=== PATIENT | female | born 1985 | race African-American/Black ===

== ENCOUNTER 2018-01-04 08:43 | Emergency (ER) | payer MEDICAID, SELFPAY ==
[2018-01-04 08:44] VITALS: BP 154/69; PULSE 80; RESP 16; TEMP 36.4; O2SAT 99; BMI 43.0
--- NOTE | 2018-01-04 08:55 | CT_ITS ---
STUDY: CT ABDOMEN AND PELVIS WITHOUT CONTRAST REASON FOR EXAM: Female, 32 years old. SUDDEN ONSET ABD PAIN THIS AM -- GB,TUBAL, X3,UMBILICAL HERNIA. RADIATION DOSAGE (If Supplied By Facility): CTDIvol = ( 19.91 ) mGy, DLP = ( 949.93 ) mGycm TECHNIQUE: Transaxial images were obtained from the dome of the diaphragm to the symphysis pubis without oral contrast, and without intravenous contrast. Sagittal and coronal images were reconstructed. Individualized dose optimization techniques were used for this CT. COMPARISON: May 13, 2016 FINDINGS: The visualized lung bases are unremarkable. The visualized portions of the heart are within normal limits. Normal liver. There are surgical clips in the gallbladder fossa consistent with a prior cholecystectomy. Normal spleen. Normal pancreas. Normal bilateral adrenal glands. Normal right kidney. Normal left kidney. Normal visualized stomach. Normal small intestine. Normal colon. The appendix is visualized and appears normal. Normal abdominal aorta. Normal inferior vena cava. Normal retroperitoneum. Normal urinary bladder. Tubal ligation clips are noted. There is decreased fat containing ventral hernia. Normal osseous structures. CT/Abdomen/Pelvis without Cont IMPRESSION: No acute intra-abdominal or intrapelvic abnormality. Cholecystectomy. Tubal ligation. Electronically Signed: Mamie Bermudez MD at 10:27 EDT Tel , Service support ,
[2018-01-04] MEDS: 0.9% Normal Saline 1,000 ML 125 ML IV (09:13)
[2018-01-04 09:16] LABS: Absolute Lymphocyte Count 2.97 X10^3/ul (0.83-4.51); Absolute Neutrophil Count 3.7 X10^3/uL (2.0-7.7); Basophil# 0.01 X10^3/uL; Basophil% 0.1 % (0-1); Eosinophil# 0.16 X10^3/uL; Eosinophils% 2.2 % (0-5); Hematocrit 32.4 % (37-47); Hemoglobin 10.2 g/dl (12.0-15.0); Lymphocyte # 2.97 X10^3/ul (4.0); Lymphocyte % 41.1 % (19-41); Mean Corp Hgb Conc 31.5 g/gl (32-36); Mean Corpuscular Hgb 27.1 pg (27.0-32.0); Mean Corpuscular Volume 86.2 fL (81-99); Mean Platelet Vol. 10.4 fl (6.2-12.0); Monocyte# 0.42 X10^3/uL; Monocyte% 5.8 % (0-10); Neutrophil # 3.66 X10^3/uL (2.7-7.7); Neutrophil % 50.7 % (47-70); Platelet Count 322 K/mm3 (150-450); RBC Distribution Width CV 16.2 % (11.6-14.6); RBC Distribution Width SD 51.2 fl (35.1-43.9); Red Blood Count 3.76 M/mm3 (4.2-5.4); White Blood Count 7.2 K/mm3 (4.4-11.0)
[2018-01-04 09:26] LABS: POSITIVE COUNT NO; POSITIVE DIFFERENTIAL NO; POSITIVE MORPHOLOGY NO
[2018-01-04 09:33] LABS: ALB/GLOB Ratio 0.8 RATIO (0.9-2.4); AST(SGOT) 12 U/L (15-37); Alanine Aminotransfer ALT/SGPT 18 U/L (13-56); Albumin, Serum 3.2 g/dL (3.2-5.0); Alkaline Phosphatase 74 U/L (45-117); Anion Gap 9 (5-15); BUN 10 mg/dL (7-18); BUN/Creat Ratio 13.6 RATIO (10-20); Calcium,Total 8.6 mg/dL (8.5-10.1); Chloride 108 mmol/L (98-107); Creatinine, Serum 0.73 mg/dL (0.55-1.02); EST Glomerular Filtration Rate 99 mL/min (>60); Est Glom Filt Rate - Afr Amer 119 mL/min (>60); Estimated Creatinine Clearance 93.22 ml/min; Globulin 4.1 g/dL (2.2-4.2); Glucose 72 mg/dL (74-106); Lipase 123 U/L (73-393); Potassium 3.7 mmol/L (3.5-5.1); Pregnancy, Serum, hCG Quali. NEGATIVE Negative (0-9 Nonpreg); Protein, Total 7.3 g/dL (6.4-8.2); Sodium Level 141 mmol/L (136-145); Total Bilirubin < 0.10 mg/dL (0.20-1.00)
--- NOTE | 2018-01-04 10:52 | ED.DCSUM_ITS ---
- ER Visit Summary Date of Service: 01/04/18 Chief Complaint: [Abdominal pain] History of Present Illness: The patient is a 32 F [presents with abdominal pain that started around 6 AM. Patient rates her pain an 8 out of 10. Patient describes it as upper abdomen. Patient's had nausea but no vomiting. Patient denies any blood in her stool or black tarry stools. Her last menstrual period was December 26. Patient denies any fever. Patient denies urinary symptoms of urgency, frequency, or dysuria. Patient has had prior hernia repair and she thinks her pain may be in the same area as her prior hernia. Patient denies any lifting or straining out of the ordinary.] Physical Examination: [HEENT-PERRLA, EOMI. Cranial nerves II through XII grossly intact. TMs clear. Mucous membranes moist. No adenopathy. Cardiovascular-regular rate and rhythm without murmur or ectopy Lungs-clear to auscultation, chest wall stable without crepitus or subcu emphysema Abdomen-normoactive bowel sounds, soft. Patient has mild diffuse tenderness in the epigastric area as well as the right lower quadrant. There is no rebound, rigidity, or perineal signs. Extremities-intact ?4, normal range of motion, normal pulses, atraumatic] Test Results: [CBC with differential was normal. Chemistries were unremarkable. HCG was negative. LFTs were normal and lipase was normal. CT abdomen pelvis without contrast showed nothing acute.] Emergency Department Course and Treatment: [Patient did not want anything for pain on presentation and on repeat examination after workup abdominal pain is significantly improved and just has minimal discomfort at this time. Her abdomen is benign.] Treatment Plan: [Follow-up with primary care physician within the next 3-4 days. ] Disposition: [Discharged to home in stable condition.] Impression: [Abdominal pain-etiology uncertain] This note was generated with [employer] dictation software. It may contain incorrect words, spelling, and punctuation that were not noted in review of the chart prior to signing ED Disposition - Plan for ED Patient: Chief Complaint: Abd Pain Referrals: Care Physician,No Primary [Primary Care Provider] -
--- NOTE | 2018-01-04 10:53 | ED.DEP ---
ED Disposition - Plan for ED Patient: Chief Complaint: Abd Pain Instructions: ED Abdominal Pain Unkn Cause Referrals: Care Physician,No Primary [Primary Care Provider] - Ronn Wyman MD [STAFF PHYSICIAN] - 3-5 Days
[2018-01-04 11:04] VITALS: BP 129/77; PULSE 68; RESP 15; O2SAT 98
== END 2018-01-04 11:06 | disposition home or self-care (01) ==
PROVIDERS: Emergency Provider Emergency Medicine
DX: R10.13 Epigastric pain (principal); R10.31 Right lower quadrant pain; Z90.49 Acquired absence of other specified parts of digestive tract; Z72.0 Tobacco use
CPT/HCPCS: 74176; 80053; 83690; 84703; 85025; 96360; 96361; 99283; J7030; A4216

== ENCOUNTER 2018-04-28 09:41 | Emergency (ER) | payer MEDICAID, SELFPAY ==
[2018-04-28 09:42] VITALS: BP 121/105; PULSE 85; RESP 16; TEMP 36.9; O2SAT 100; BMI 40.7
--- NOTE | 2018-04-28 09:59 | ED.VISSUMM ---
- ER Visit Summary Date of Service: 04/28/18 Chief Complaint: Cough and short of breath History of Present Illness: The patient is a 33 F 3 of asthma. Currently is not been using her inhaler. She is a smoker. Patient states for the last 24-48 hours she has had URI symptoms. With chills and a productive cough of yellowish sputum. She denies any fever. No hemoptysis. No history of DVT or PE risk factors. Physical Examination: Well-appearing young female. Vital signs are stable afebrile. Pulse ox 100% on room air no signs of hypoxia. H EENT exam unremarkable. TMs normal. Posterior pharynx normal. Moist mucous membranes. No erythema or exudate. No drooling or stridor. Neck nontender no lymphadenopathy. Lungs prolonged expiratory phase. Few scattered wheezes. No rales or rhonchi. Equal and symmetrical. Heart regular rhythm no murmur. Abdomen soft nontender. Moving all 4 extremities. Calves nontender no edema no cords. Neurologically she is awake and alert with no focal motor deficits. Skin and back exams are unremarkable. Test Results: Two-view chest x-ray shows normal by myself. Emergency Department Course and Treatment: Patient treated with a DuoNeb aerosol and p.o. prednisone. P exam at 1058 patient feels better. She is much better air movement after the DuoNeb aerosol and the oral prednisone. She is no longer wheezing. She feels comfortable being discharged to home. She and I discussed her chest x-ray results. She was also instructed to stop smoking. Treatment Plan: Prednisone 40 mg a day for 1 week. Proventil inhaler as needed. Follow-up with her primary care physician or return if worse. Disposition: Discharge Impression: Acute viral bronchitis Acute exacerbation of asthma This note was generated with [employer] dictation software. It may contain incorrect words, spelling, and punctuation that were not noted in review of the chart prior to signing ED Disposition - Plan for ED Patient: Disposition: Home or Assisted Living Chief Complaint: Asthma Instructions: ED Bronchitis Asthmatic Prescriptions: Albuterol Sulfate [Proventil Hfa] 6.7 gm IH Q4H PRN PRN #1 [email or web address] PRN Reason: Wheezing Prednisone [Deltasone] 40 mg PO DAILY #7 tab Referrals: Ronn Wyman MD [STAFF PHYSICIAN] - 3-5 Days if not improving Additional Instructions: Absolutely stop smoking! Prednisone daily to decrease inflammation in the lungs and help with your breathing. Inhaler 2-4 pulse as needed every 4 hours. No surgical process of Follow-up with your doctor needed.
--- NOTE | 2018-04-28 10:02 | ED.DEP ---
ED Disposition - Plan for ED Patient: Disposition: Home or Assisted Living Chief Complaint: Asthma Instructions: ED Bronchitis Asthmatic Prescriptions: Albuterol Sulfate [Proventil Hfa] 6.7 gm IH Q4H PRN PRN #1 [email or web address] PRN Reason: Wheezing Prednisone [Deltasone] 40 mg PO DAILY #7 tab Referrals: Ronn Wyman MD [STAFF PHYSICIAN] - 3-5 Days if not improving Additional Instructions: Absolutely stop smoking! Prednisone daily to decrease inflammation in the lungs and help with your breathing. Inhaler 2-4 pulse as needed every 4 hours. No surgical process of Follow-up with your doctor needed.
[2018-04-28] MEDS: Ipratropium/Albuterol Sulfate 3 ML AMPUL.NEB INHALATION (10:06)
[2018-04-28 10:07] VITALS: PULSE 86; RESP 16
[2018-04-28] MEDS: predniSONE 20 MG Tablet 60 MG PO (10:26)
== END 2018-04-28 11:28 | disposition home or self-care (01) ==
LOC: ED 10:44
PROVIDERS: Emergency Provider Emergency Medicine
DX: J20.8 Acute bronchitis due to other specified organisms (principal); J45.901 Unspecified asthma with (acute) exacerbation; F17.200 Nicotine dependence, unspecified, uncomplicated
CPT/HCPCS: 71046; 94640; 99283

== ENCOUNTER 2018-08-21 17:43 | Emergency (ER) | payer MEDICAID, SELFPAY ==
[2018-08-21 17:44] VITALS: BP 118/75; PULSE 77; RESP 16; TEMP 36.8; O2SAT 100; BMI 37.9
[2018-08-21] MEDS: 0.9% Normal Saline 1,000 ML 1000 ML IV (18:16)
[2018-08-21] MEDS: Ondansetron 4 MG/2 ML Vial IV (18:16)
[2018-08-21 18:18] LABS: Absolute Lymphocyte Count 1.82 X10^3/ul (0.83-4.51); Absolute Neutrophil Count 4.5 X10^3/uL (2.0-7.7); Eosinophil# 0.14 X10^3/uL; Eosinophils% 2.1 % (0-5); Hematocrit 33.6 % (37-47); Hemoglobin 10.7 g/dl (12.0-15.0); Lymphocyte # 1.82 X10^3/ul (4.0); Lymphocyte % 26.7 % (19-41); Mean Corp Hgb Conc 31.8 g/gl (32-36); Mean Corpuscular Volume 84.8 fL (81-99); Monocyte% 5.9 % (0-10); Neutrophil # 4.46 X10^3/uL (2.7-7.7); Neutrophil % 65.3 % (47-70); Platelet Count 338 K/mm3 (150-450); RBC Distribution Width CV 16.1 % (11.6-14.6); RBC Distribution Width SD 50.1 fl (35.1-43.9); Red Blood Count 3.96 M/mm3 (4.2-5.4); White Blood Count 6.8 K/mm3 (4.4-11.0)
[2018-08-21 18:20] LABS: POSITIVE COUNT NO; POSITIVE DIFFERENTIAL NO; POSITIVE MORPHOLOGY NO
--- NOTE | 2018-08-21 18:29 | ED.VISSUMM ---
- ER Visit Summary Date of Service: 08/21/18 Chief Complaint: Diarrhea History of Present Illness: The patient is a 33 F with diarrhea and nausea for the past 2 days. Today she is noted some body aches as well. She has not noted fever. She has not had dysuria. Patient denies any past medical history. It is noted on a previous visit that she had elevated liver function test. Patient states nobody is ever really followed up on this and she has had no further workup for it. Physical Examination: Vital signs are unremarkable. Patient sitting upright in bed no acute distress. Head neck examination is unremarkable. Heart is regular rate and rhythm. Lung sounds are clear. Abdomen is soft with mild diffuse tenderness. No guarding or rebound. Hypoactive bowel sounds are noted throughout. Extremity examination reveals no focal tenderness. Strong distal pulses are noted. Test Results: CBC was normal white count with hemoglobin 10.7. Chemistry studies are normal. LFTs and lipase are normal. Emergency Department Course and Treatment: Patient was given IV fluids and Zofran. On repeat evaluation she does feel significantly improved. She has not had any further diarrhea here. She will be given prescription for Zofran. Treatment Plan: [] Disposition: Discharge Impression: 1. Nausea, improved 2. Reported diarrhea This note was generated with [employer] dictation software. It may contain incorrect words, spelling, and punctuation that were not noted in review of the chart prior to signing ED Disposition - Plan for ED Patient: Chief Complaint: Diarrhea Referrals: Care Physician,No Primary [Primary Care Provider] -
[2018-08-21 18:36] LABS: AST(SGOT) 10 U/L (15-37); Alanine Aminotransfer ALT/SGPT 17 U/L (13-56); Albumin, Serum 3.3 g/dL (3.2-5.0); Alkaline Phosphatase 74 U/L (45-117); Anion Gap 9 (5-15); BUN 11 mg/dL (7-18); BUN/Creat Ratio 15.4 RATIO (10-20); Bilirubin, Direct 0.08 mg/dL (0.00-0.30); Calcium,Total 8.4 mg/dL (8.5-10.1); Chloride 109 mmol/L (98-107); Creatinine, Serum 0.71 mg/dL (0.55-1.02); EST Glomerular Filtration Rate 101 mL/min (>60); Est Glom Filt Rate - Afr Amer 123 mL/min (>60); Estimated Creatinine Clearance 94.97 ml/min; Globulin 4.1 g/dL (2.2-4.2); Glucose 80 mg/dL (74-106); Lipase 130 U/L (73-393); Potassium 3.7 mmol/L (3.5-5.1); Protein, Total 7.4 g/dL (6.4-8.2); Sodium Level 142 mmol/L (136-145)
[2018-08-21 18:41] VITALS: PULSE 76; RESP 18; O2SAT 100
--- NOTE | 2018-08-21 19:11 | ED.DEP ---
ED Disposition - Plan for ED Patient: Disposition: Home or Assisted Living Chief Complaint: Diarrhea Instructions: ED Gastroenteritis Viral Prescriptions: Ondansetron [Zofran Odt] 4 mg PO Q8H PRN PRN #10 tablet PRN Reason: Nausea Referrals: Kasandra Willis MD [STAFF PHYSICIAN] - As Needed
[2018-08-21 19:14] VITALS: BP 123/74; PULSE 75; RESP 16; O2SAT 100
--- OUTSIDE RECORDS SUMMARY | 2018-11-23 09:54 | XMS RPT_ITS ---
:1985 Author Organization [facility] Care Team Providers Name Role Phone Primay Care Physicia, No Primary Care Unavailable Briana Calvert Attending Unavailable Primay Care Physicia, No Primary Care Unavailable Julissa Wilkes Attending Unavailable Primay Care Physicia, No Primary Care Unavailable Doe Mclain Attending Unavailable PROBLEMS PROBLEMS DATE TYPE CONDITION / CODE ATTENDING STATUS SOURCE 09/01/2018 Unknown R19.7 - Diarrhea, Briana Calvert Active [place] unspecified / Community R19.7(ICD-10) Hospital Repository PROCEDURES PROCEDURES No Procedure Records FoundRESULTS RESULTS EMERGENCY DEPARTMENT Observed: 08/22/2018 Status: F Source: [place] 12:31 AM [facility] REPOSITORY [facility] Medical Records Department [address] [place] [address] Emergency Department Summary 08/21/18 1829 MR#: [id number] Acct: [id number] Name: BEVERLEY LUKE Rep #: [id number] : 1985 33 From: Briana Calvert MD PCP: Care Physician, No Primary Status: [facility] ER - ER Visit Summary Date of Service: 08/21/18 Chief Complaint: Diarrhea History of Present Illness: The patient is a 33 F with diarrhea and nausea for the past 2 days. Today she is noted some body aches as well. She has not noted fever. She has not had dysuria. Patient denies any past medical history. It is noted on a previous visit that she had elevated liver function test. Patient states nobody is ever really followed up on this and she has had no further workup for it. Physical Examination: Vital signs are unremarkable. Patient sitting upright in bed no acute distress. Head neck examination is unremarkable. Heart is regular rate and rhythm. Lung sounds are clear. Abdomen is soft with mild diffuse tenderness. No guarding or rebound. Hypoactive bowel sounds are noted throughout. Extremity examination reveals no focal tenderness. Strong distal pulses are noted. Test Results: CBC was normal white count with hemoglobin 10.7. Chemistry studies are normal. LFTs and lipase are normal. Emergency Department Course and Treatment: Patient was given IV fluids and Zofran. On repeat evaluation she does feel significantly improved. She has not had any further diarrhea here. She will be given prescription for Zofran. Treatment Plan: [] Disposition: Discharge Impression: 1. Nausea, improved 2. Reported diarrhea This note was generated with [employer] dictation software. It may contain incorrect words, spelling, and punctuation that were not noted in review of the chart prior to signing ED Disposition - Plan for ED Patient: Chief Complaint: Diarrhea Referrals: Care Physician,No Primary [Primary Care Provider] - What to do if you have Problems For any increased pain, shortness of breath, bleeding, nausea or vomiting, chest pain, or any unexpected problems, contact your Primary Care Provider. Call [facility] ([phone]) or report to the closest Emergency Room. Call 911 if necessary. 08/22/18 0031 <Electronically signed by Briana Calvert MD> Date Briana Calvert MD Cosigner Signature (If Indicated): Date CC: No Primary Care Physician DISCHARGE INSTRUCTION Observed: 08/21/2018 Status: F Source: [place] 7:13 PM [facility] REPOSITORY [facility] Medical Records Department [address] [place] [address] Discharge Instruction 08/21/181910 MR#: [id number] Acct: [id number] Name: BEVERLEY LUKE Rep #: [id number] : 1985 33 From: Briana Calvert MD PCP: Care Physician, No Primary Status: REG ER ED Disposition - Plan for ED Patient: Disposition: Home or Assisted Living Chief Complaint: Diarrhea Instructions: ED Gastroenteritis Viral Prescriptions: Ondansetron [Zofran Odt] 4 mg PO Q8H PRN PRN #10 tablet PRN Reason: Nausea Referrals: Kasandra Willis MD [STAFF PHYSICIAN] - As Needed What to do if you have Problems For any increased pain, shortness of breath, bleeding, nausea or vomiting, chest pain, or any unexpected problems, contact your Primary Care Provider. Call [facility] ([phone]) or report to the closest Emergency Room. Call 911 if necessary. 08/21/181912 <Electronically signed by Briana Calvert MD> Date Briana Calvert MD Cosigner Signature (If Indicated): Date CC: No Primary Care Physician CBC W/DIFF, AUTOMATED Collected: 08/21/2018 Status: F Source: [place] 6:05 PM [facility] REPOSITORY TYPE CODE TESTS RESULT OUT OF RANGE REFERENCE UNITS LAB L100.1000 4.4-11.0 K/mm3 Normal WBC 6.8 LAB L100.1200 4.2-5.4 M/mm3 Low RBC 3.96 LAB L100.1300 12.0-15.0 g/dl Low HGB 10.7 LAB L100.1400 37-47 % Low HCT 33.6 LAB L100.1500 81-99 fL Normal MCV 84.8 LAB L100.1600 27.0-32.0 pg Normal MCH 27.0 LAB L100.1700 32-36 g/gl Low MCHC 31.8 LAB L100.1810 11.6-14.6 % High RDW CV 16.1 LAB L100.1820 35.1-43.9 fl High RDW SD 50.1 LAB L100.1900 150-450 K/mm3 Normal PLT 338 LAB L100.2000 6.2-12.0 fl Normal MPV 10.0 LAB L100.2100 47-70 % Normal NEUT% 65.3 LAB L100.2200 19-41 % Normal LY% 26.7 LAB L100.2300 0-10 % Normal MONO% 5.9 LAB L100.2400 0-5 % Normal EO% 2.1 LAB L100.2500 0-1 % Normal BASO% 0.0 LAB L100.2550 0.0-0.9 % Normal IM GRAN % 0.000 Result Comment: IG% - Immature Granulocytes (promyelocytes, myelocytes and metamyelocytes) > 1% indicates that a LEFT SHIFT is Present. LAB L100.2620 2.0-7.7 X10 3/uL Normal Absolute Neut 4.5 LAB L100.2720 0.83-4.51 X10 3/ul Normal Absolute Lymph 1.82 Performed By: #### L100.0100 #### [facility] [address] [place], [address] BASIC METABOLIC Collected: 08/21/2018 Status: F Source: [place] PROFILE ([facility]) 6:05 PM [facility] REPOSITORY TYPE CODE TESTS RESULT OUT OF RANGE REFERENCE UNITS LAB L501.0100 74-106 mg/dL Normal GLU 80 Result Comment: Please note revised GLUCOSE reference range effective 2017. LAB L501.1000 7-18 mg/dL Normal BUN 11 LAB L501.1100 0.55-1.02 mg/dL Normal CREAT,SERUM 0.71 Result Comment: The validity of the calculated GFR AND GFRAA in patients over 70 years has not been determined. Clinical correlation is essential. LAB L501.1110 >60 mL/min Normal EST GFR 101 Result Comment: Non- GFR Calc LAB L501.1115 >60 mL/min Normal EST GFR - AA 123 Result Comment: GFR Calc LAB L501.1255 ml/min Normal Estimated CRCL 94.97 LAB L501.1300 10-20 RATIO Normal BUN/CRE 15.4 LAB L501.2200 8.5-10 mg/dL Low .1 CA 8.4 LAB L501.5300 136-14 mmol/L Normal 5 NA 142 LAB L501.5600 3.5-5. mmol/L Normal 1 K 3.7 LAB L501.5900 98-107 mmol/L High CL 109 LAB L501.6100 21.0-3 mmol/L Normal 2.0 CO2 24.0 LAB L501.6200 5-15 Normal GAP 9 Performed By: #### L500.2500, L500.3400, L501.2450 #### [facility] [address] [place], [place], [id number] LIVER PROFILE Collected: 08/21/2018 Status: F Source: [place] 6:05 PM [facility] REPOSITORY TYPE CODE TESTS RESULT OUT OF RANGE REFERENCE UNITS LAB L501.1500 6.4-8.2 g/dL Normal T PROT 7.4 LAB L501.1800 3.2-5.0 g/dL Normal ALB 3.3 LAB L501.1950 2.2-4.2 g/dL Normal GLOB 4.1 LAB L501.4100 15-37 U/L Low AST 10 LAB L501.4305 45-117 U/L Normal ALK P 74 LAB L501.4405 13-56 U/L Normal ALT 17 LAB L501.4600 0.20-1.00 mg/dL Normal T BILI 0.30 LAB L501.4700 0.00-0.30 mg/dL Normal D BILI 0.08 Performed By: #### L500.2500, L500.3400, L501.2450 #### [facility] [address] [place], [place], [id number] LIPASE Collected: 08/21/2018 Status: F Source: [place] 6:05 PM [facility] REPOSITORY TYPE CODE TESTS RESULT OUT OF RANGE REFERENCE UNITS LAB L501.2450 73-393 U/L Normal LIPASE 130 Performed By: #### L500.2500, L500.3400, L501.2450 #### [facility] [address] [place], [address] EMERGENCY DEPARTMENT Observed: 04/28/2018 Status: F Source: [place] SUMMARY 3:33 PM [facility] REPOSITORY [facility] Medical Records Department [address] [place] [address] Emergency Department Summary 04/28/18 0959 MR#: [id number] Acct: [id number] Name: BEVERLEY LUKE Rep #: [id number] : 1985 33 From: Doe Mclain MD PCP: Care Physician, No Primary Status: [facility] ER - ER Visit Summary Date of Service: 04/28/18 Chief Complaint: Cough and short of breath History of Present Illness: The patient is a 33 F 3 of asthma. Currently is not been using her inhaler. She is a smoker. Patient states for the last 24- 48 hours she has had URI symptoms. With chills and a productive cough of yellowish sputum. She denies any fever. No hemoptysis. No history of DVT or PE risk factors. Physical Examination: Well-appearing young female. Vital signs are stable afebrile. Pulse ox 100% on room air no signs of hypoxia. H EENT exam unremarkable. TMs normal. Posterior pharynx normal. Moist mucous membranes. No erythema or exudate. No drooling or stridor. Neck nontender no lymphadenopathy. Lungs prolonged expiratory phase. Few scattered wheezes. No rales or rhonchi. Equal and symmetrical. Heart regular rhythm no murmur. Abdomen soft nontender. Moving all 4 extremities. Calves nontender no edema no cords. Neurologically she is awake and alert with no focal motor deficits. Skin and back exams are unremarkable. Test Results: Two-view chest x-ray shows normal by myself. Emergency Department Course and Treatment: Patient treated with a DuoNeb aerosol and p.o. prednisone. P exam at 1058 patient feels better. She is much better air movement after the DuoNeb aerosol and the oral prednisone. She is no longer wheezing. She feels comfortable being discharged to home. She and I discussed her chest x-ray results. She was also instructed to stop smoking. Treatment Plan: Prednisone 40 mg a day for 1 week. Proventil inhaler as needed. Follow-up with her primary care physician or return if worse. Disposition: Discharge Impression: Acute viral bronchitis Acute exacerbation of asthma This note was generated with [employer] dictation software. It may contain incorrect words, spelling, and punctuation that were not noted in review of the chart prior to signing ED Disposition - Plan for ED Patient: Disposition: Home or Assisted Living Chief Complaint: Asthma Instructions: ED Bronchitis Asthmatic Prescriptions: Albuterol Sulfate [Proventil Hfa] 6.7 gm IH Q4H PRN PRN #1 [email or web address] PRN Reason: Wheezing Prednisone [Deltasone] 40 mg PO DAILY #7 tab Referrals: Ronn Wyman MD [STAFF PHYSICIAN] - 3-5 Days if not improving Additional Instructions: Absolutely stop smoking! Prednisone daily to decrease inflammation in the lungs and help with your breathing. Inhaler 2-4 pulse as needed every 4 hours. No surgical process of Follow-up with your doctor needed. What to do if you have Problems For any increased pain, shortness of breath, bleeding, nausea or vomiting, chest pain, or any unexpected problems, contact your Primary Care Provider. Call [facility] ([phone]) or report to the closest Emergency Room. Call 911 if necessary. 04/28/18 1533 <Electronically signed by Doe Mclain MD> Date Doe Mclain MD Cosigner Signature (If Indicated): Date CC: No Primary Care Physician DISCHARGE INSTRUCTION Observed: 04/28/2018 Status: F Source: [place] 3:33 PM [facility] REPOSITORY [facility] Medical Records Department [address] [place] [address] Discharge Instruction 04/28/18 1002 MR#: [id number] Acct: [id number] Name: BEVERLEY LUKE Rep #: [id number] : 1985 33 From: Doe Mclain MD PCP: Care Physician, No Primary Status: [facility] ER ED Disposition - Plan for ED Patient: Disposition: Home or Assisted Living Chief Complaint: Asthma Instructions: ED Bronchitis Asthmatic Prescriptions: Albuterol Sulfate [Proventil Hfa] 6.7 gm IH Q4H PRN PRN #1 [email or web address] PRN Reason: Wheezing Prednisone [Deltasone] 40 mg PO DAILY #7 tab Referrals: Ronn Wyman MD [STAFF PHYSICIAN] - 3-5 Days if not improving Additional Instructions: Absolutely stop smoking! Prednisone daily to decrease inflammation in the lungs and help with your breathing. Inhaler 2-4 pulse as needed every 4 hours. No surgical process of Follow-up with your doctor needed. What to do if you have Problems For any increased pain, shortness of breath, bleeding, nausea or vomiting, chest pain, or any unexpected problems, contact your Primary Care Provider. Call [facility] ([phone]) or report to the closest Emergency Room. Call 911 if necessary. 04/28/18 1533 <Electronically signed by Doe Mclain MD> Date Doe Mclain MD Cosigner Signature (If Indicated): Date CC: No Primary Care Physician CHEST PA AND LATERAL Observed: 04/28/2018 Status: F Source: [place] 9:59 AM [facility] REPOSITORY [facility] Imaging Services [facility] [place] [address] [place] [address] Chest PA and Lateral MR#: [id number] Acct: [id number] Name: BEVERLEY LUKE Rep #: [id number] : 1985 F 33 From: Martin Song MD PCP: Care Physician, No Primary Status: REG ER Study: Chest PA and Lateral Date of Exam: 04/28/18 Exam# [id number] Ordering Dr: Doe Mclain MD STUDY: X-RAY CHEST REASON FOR EXAM: Female, 33 years old. Cough. History of asthma. TECHNIQUE: Single AP portable view of the chest. COMPARISON: None. FINDINGS: The lungs are clear and expanded. There is no demonstrated pleural abnormality. Normal size heart. Normal mediastinum and juliana. Normal visualized pulmonary arteries. Normal visualized aortic arch and descending thoracic aorta. Normal visualized thoracic spine. Normal visualized ribs, clavicles, and shoulders. There is no demonstrated abnormality of the visualized soft tissue structures of the upper abdomen. RAD/Chest PA and Lateral IMPRESSION: Normal x-ray examination of the chest. Electronically Signed: Matrin Song MD at 11:03 EDT Tel [phone], Service support , CC: No Primary Care Physician; Doe Mclain MD Retail Store Clerk: Signed DISCHARGE INSTRUCTION Observed: 01/04/2018 Status: F Source: [place] 10:53 AM [facility] Medical Records Department [address] [place] [address] Discharge Instruction 01/04/18 1053 MR#: [id number] Acct: [id number] Name: BEVERLEY LUKE Rep #: [id number] : 1985 32 From: Julissa Wilkes DO PCP: Care Physician, No Primary Status: REG ER ED Disposition - Plan for ED Patient: Chief Complaint: Abd Pain Instructions: ED Abdominal Pain Unkn Cause Referrals: Care Physician,No Primary [Primary Care Provider] - Ronn Wyman MD [STAFF PHYSICIAN] - 3-5 Days What to do if you have Problems For any increased pain, shortness of breath, bleeding, nausea or vomiting, chest pain, or any unexpected problems, contact your Primary Care Provider. Call [facility] ([phone]) or report to the closest Emergency Room. Call 911 if necessary. 01/04/18 1053 <Electronically signed by Julissa Wilkes DO> Date Julissa Wilkes DO Cosigner Signature (If Indicated): Date CC: No Primary Care Physician EMERGENCY DEPARTMENT Observed: 01/04/2018 Status: F Source: [place] SUMMARY 10:52 AM [facility] REPOSITORY [facility] Medical Records Department [address] [facility] [place] [address] Emergency Department Summary 01/04/18 1050 MR#: [id number] Acct: [id number] Name: EBVERLEY LUKE Delores Rep #: [id number] : 1985 32 From: Julissa Wilkes DO PCP: Care Physician, No Primary Status: REG ER - ER Visit Summary Date of Service: 01/04/18 Chief Complaint: [Abdominal pain] History of Present Illness: The patient is a 32 F [presents with abdominal pain that started around 6 AM. Patient rates her pain an 8 out of 10. Patient describes it as upper abdomen. Patient's had nausea but no vomiting. Patient denies any blood in her stool or black tarry stools. Her last menstrual period was December 26. Patient denies any fever. Patient denies urinary symptoms of urgency, frequency, or dysuria. Patient has had prior hernia repair and she thinks her pain may be in the same area as her prior hernia. Patient denies any lifting or straining out of the ordinary.] Physical Examination: [HEENT-PERRLA, EOMI. Cranial nerves II through XII grossly intact. TMs clear. Mucous membranes moist. No adenopathy. Cardiovascular-regular rate and rhythm without murmur or ectopy Lungs-clear to auscultation, chest wall stable without crepitus or subcu emphysema Abdomen-normoactive bowel sounds, soft. Patient has mild diffuse tenderness in the epigastric area as well as the right lower quadrant. There is no rebound, rigidity, or perineal signs. Extremities-intact 4, normal range of motion, normal pulses, atraumatic] Test Results: [CBC with differential was normal. Chemistries were unremarkable. HCG was negative. LFTs were normal and lipase was normal. CT abdomen pelvis without contrast showed nothing acute.] Emergency Department Course and Treatment: [Patient did not want anything for pain on presentation and on repeat examination after workup abdominal pain is significantly improved and just has minimal discomfort at this time. Her abdomen is benign.] Treatment Plan: [Follow-up with primary care physician within the next 3-4 days.] Disposition: [Discharged to home in stable condition.] Impression: [Abdominal pain-etiology uncertain] This note was generated with [employer] dictation software. It may contain incorrect words, spelling, and punctuation that were not noted in review of the chart prior to signing ED Disposition - Plan for ED Patient: Chief Complaint: Abd Pain Referrals: Care Physician,No Primary [Primary Care Provider] - What to do if you have Problems For any increased pain, shortness of breath, bleeding, nausea or vomiting, chest pain, or any unexpected problems, contact your Primary Care Provider. Call [facility] ([phone]) or report to the closest Emergency Room. Call 911 if necessary. 01/04/18 1052 <Electronically signed by Julissa Wilkes DO> Date Julissa Wilkes DO Cosigner Signature (If Indicated): Date CC: No Primary Care Physician CBC W/DIFF, AUTOMATED Collected: 01/04/2018 Status: F Source: [place] 9:02 AM [facility] REPOSITORY TYPE CODE TESTS RESULT OUT OF RANGE REFERENCE UNITS LAB L100.1000 4.4-11.0 K/mm3 Normal WBC 7.2 LAB L100.1200 4.2-5.4 M/mm3 Low RBC 3.76 LAB L100.1300 12.0-15.0 g/dl Low HGB 10.2 LAB L100.1400 37-47 % Low HCT 32.4 LAB L100.1500 81-99 fL Normal MCV 86.2 LAB L100.1600 27.0-32.0 pg Normal MCH 27.1 LAB L100.1700 32-36 g/gl Low MCHC 31.5 LAB L100.1810 11.6-14.6 % High RDW CV 16.2 LAB L100.1820 35.1-43.9 fl High RDW SD 51.2 LAB L100.1900 150-450 K/mm3 Normal PLT 322 LAB L100.2000 6.2-12.0 fl Normal MPV 10.4 LAB L100.2100 47-70 % Normal NEUT% 50.7 LAB L100.2200 19-41 % High LY% 41.1 LAB L100.2300 0-10 % Normal MONO% 5.8 LAB L100.2400 0-5 % Normal EO% 2.2 LAB L100.2500 0-1 % Normal BASO% 0.1 LAB L100.2550 0.0-0.9 % Normal IM GRAN % 0.100 Result Comment: IG% - Immature Granulocytes (promyelocytes, myelocytes and metamyelocytes) > 1% indicates that a LEFT SHIFT is Present. LAB L100.2620 2.0-7.7 X10 3/uL Normal Absolute Neut 3.7 LAB L100.2720 0.83-4.51 X10 3/ul Normal Absolute Lymph 2.97 Performed By: #### L100.0100 #### [facility] [address] [place], [place], [address] COMPREHENSIVE METABOLIC Collected: 01/04/2018 Status: F Source: [facility] 9:02 AM [facility] REPOSITORY TYPE CODE TESTS RESULT OUT OF RANGE REFERENCE UNITS LAB L501.0100 74-106 mg/dL Low GLU 72 Result Comment: Please note revised GLUCOSE reference range effective 2017. LAB L501.1000 7-18 mg/dL Normal BUN 10 LAB L501.1100 0.55-1.02 mg/dL Normal CREAT,SERUM 0.73 Result Comment: The validity of the calculated GFR AND GFRAA in patients over 70 years has not been determined. Clinical correlation is essential. LAB L501.1110 >60 mL/min Normal EST GFR 99 Result Comment: Non- GFR Calc LAB L501.1115 >60 mL/min Normal EST GFR - AA 119 Result Comment: GFR Calc LAB L501.1255 ml/min Normal Estimated CRCL 93.22 LAB L501.1300 10-20 RATIO Normal BUN/CRE 13.6 LAB L501.1500 6.4-8. g/dL Normal 2 T PROT 7.3 LAB L501.1800 3.2-5. g/dL Normal 0 ALB 3.2 LAB L501.1950 2.2-4. g/dL Normal 2 GLOB 4.1 LAB L501.2000 0.9-2. RATIO Low 4 A/G 0.8 LAB L501.2200 8.5-10 mg/dL Normal .1 CA 8.6 LAB L501.4100 15-37 U/L Low AST 12 LAB L501.4305 45-117 U/L Normal ALK P 74 LAB L501.4405 13-56 U/L Normal ALT 18 LAB L501.4600 0.20-1 mg/dL Low .00 T BILI < 0.10 LAB L501.5300 136-14 mmol/L Normal 5 NA 141 LAB L501.5600 3.5-5. mmol/L Normal 1 K 3.7 LAB L501.5900 98-107 mmol/L High CL 108 LAB L501.6100 21.0-3 mmol/L Normal 2.0 CO2 24.0 LAB L501.6200 5-15 Normal GAP 9 Performed By: #### L500.4050, L501.2450 #### [facility] [address] [place], [place], [address] LIPASE Collected: 01/04/2018 Status: F Source: [place] 9:02 AM [facility] REPOSITORY TYPE CODE TESTS RESULT OUT OF RANGE REFERENCE UNITS LAB L501.2450 73-393 U/L Normal LIPASE 123 Performed By: #### L500.4050, L501.2450 #### [facility] [address] [place], [place], [address] ,SERUM,HCG QUALI. Collected: Status: F Source: [place] 01/04/2018 9:02 AM [facility] REPOSITORY TYPE CODE TESTS RESULT OUT OF REFERENCE UNITS RANGE LAB L700.7000 0-9 Nonpreg Negative Normal HCGSQUAL NEGATIVE LAB L700.6700 =>Qualitative mIU/mL Normal HCG Qual < 1 triggr Performed By: #### L700.6800 #### [facility] [address] [place], [address] ABDOMEN/PELVIS WITHOUT Observed: 01/04/2018 Status: F Source: [place] CONT 8:56 AM [facility] REPOSITORY [facility] Imaging Services [address] [place] [address] Abdomen/Pelvis without Cont MR#: [id number] Acct: [id number] Name: BEVERLEY LUKE Rep #: [id number] : 1985 F 32 From: Mamie Bermudez PCP: Care Physician, No Primary Status: REG ER Study: Abdomen/Pelvis without Cont Date of Exam: 01/04/18 Exam# [id number] Ordering Dr: Julissa Wilkes DO STUDY: CT ABDOMEN AND PELVIS WITHOUT CONTRAST REASON FOR EXAM: Female, 32 years old. SUDDEN ONSET ABD PAIN THIS AM -- GB,TUBAL, X3,UMBILICAL HERNIA. RADIATION DOSAGE (If Supplied By Facility): CTDIvol = ( 19.91 ) mGy, DLP = ( 949.93 ) mGycm TECHNIQUE: Transaxial images were obtained from the dome of the diaphragm to the symphysis pubis without oral contrast, and without intravenous contrast. Sagittal and coronal images were reconstructed. Individualized dose optimization techniques were used for this CT. COMPARISON: May 13, 2016 FINDINGS: The visualized lung bases are unremarkable. The visualized portions of the heart are within normal limits. Normal liver. There are surgical clips in the gallbladder fossa consistent with a prior cholecystectomy. Normal spleen. Normal pancreas. Normal bilateral adrenal glands. Normal right kidney. Normal left kidney. Normal visualized stomach. Normal small intestine. Normal colon. The appendix is visualized and appears normal. Normal abdominal aorta. Normal inferior vena cava. Normal retroperitoneum. Normal urinary bladder. Tubal ligation clips are noted. There is decreased fat containing ventral hernia. Normal osseous structures. CT/Abdomen/Pelvis without Cont IMPRESSION: No acute intra-abdominal or intrapelvic abnormality. Cholecystectomy. Tubal ligation. Electronically Signed: Mamie Bermudez MD at 10:27 EDT Tel , Service support , CC: No Primary Care Physician; Julissa Wilkes DO Retail Store Clerk: Signed ALLERGIES ALLERGIES DATE TYPE / CODE NAME / CODE REACTION SEVERITY SOURCE 04/28/2018 Drug No Known Unknown [facility] Allergy/4160 Allergies/F00 [facility] [address]178(SNOMED 7266233(RXNOR Repository CT) M) ENCOUNTERS ENCOUNTERS ADMIT/DISCHARGE ACCOUNT ADMITTING ENCOUNTER LOCATION SOURCE NUMBER CLASS 08/21/2018/ [id number] Emergency [address] ing:ED Repository 04/28/2018/ [id number] Emergency [address] ing:ED Repository 01/04/2018/ [id number] Emergency [address] ing:ED Repository PAYERS PAYERS ENCOUNTER GUARANTOR PAYER SUBSCRIBER SOURCE 08/21/2018 ANTELLE Q Primary NOT GIVENUNK [place] [address] NOLD Insurance:SELF PAY [address] [id number]: Number: Effective Repository Date:2018-08-21 () 04/28/2018 ANTELLE Q Primary ANTELLE Q Franck [id number] Insurance:FAVIOLA CAMACHOB[facility] Number: [id number] [id number] Repository [id number]: [phone] Date:2018-04-28P O [phone] () [address]ATTN: [place] [address]MN: 04/28/2018 Secondary NOT GIVENUNK Franck Insurance:SELF PAY [facility] Number: Effective Repository Date:2018-04-28 01/04/2018 ANTELLE Q Primary ANTELLE Q [place] [id number] Insurance:CARESOURCEP [facility] Number: [id number], [place] [id number] Repository [address]Vyb: [phone] Date:2018-01-04P O [phone] () [address]ATTN: [place] [address]OL: 01/04/2018 Secondary NOT GIVENUNK Franck Insurance:SELF PAY [facility] Number: Effective Repository Date:2018-01-04
== END 2018-08-21 19:16 | disposition home or self-care (01) ==
PROVIDERS: Emergency Provider Emergency Medicine
DX: R19.7 Diarrhea, unspecified (principal); R11.0 Nausea; Z72.0 Tobacco use
CPT/HCPCS: 80048; 80076; 83690; 85025; 99283; J7030; A4216; J2405

== ENCOUNTER 2024-10-20 17:08 | Emergency (ER) | payer SELFPAY ==
[2024-10-20 17:09] VITALS: BP 142/75; PULSE 85; RESP 16; TEMP 36.7; O2SAT 100; BMI 37.4
--- NOTE | 2024-10-20 19:39 | EDS_ITS ---
HPI History of Present Illness Chief Complaint: Cold Sx Detail of Chief Complaint: Nausea, diarrhea, headache Informant: patient Narrative Narrative: Patient presents emergency department with illness that started yesterday. She states that she started with a headache yesterday and nausea. Started with diarrhea yesterday. She complains of bodyaches. 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 She denies significant cough or fever. She denies urinary symptoms. She describes some upper abdominal discomfort. She has had prior cholecystectomy. No lower abdominal discomfort. She denies urinary symptoms PFSH PFSH Medical History no medical history Home Medications ?Medication ?Instructions ?Recorded ?Last Taken ?Type albuterol sulfate 90 mcg/actuation 6.7 gm IH Q4H PRN P RN Wheezing ##1 04/28/18 Unknown Rx aerosol inhaler prednisone 20 mg tablet 40 mg (2 x 20 mg) PO DAILY # 7 tabs 04/28/18 Unknown Rx ondansetron 4 mg disintegrating 4 mg PO Q8H PRN PRN Na usea #10 tabs 08/21/18 Unknown Rx tablet Allergy/AdvReac Type Severity Reaction Status Date / Time No Known Allergies Allergy Verified 10/20/24 17:12 Social History Smoking Status: Current every day smoker tobacco type: cigarettes ROS ROS ED Review of Systems ROS Unobtainable: other Constitutional Constitutional ED: Reports lethargy; Denies chills, fever(s), sweats or weight loss Eyes Eyes: Denies blurry vision, change in vision or diplopia ENT ENT ED: Denies rhinorrhea or sore throat Cardiovascular Cardiovascular: Denies chest pain, orthopnea or racing heartbeat Respiratory/Chest Respiratory/Chest: Denies cough, dyspnea, dyspnea on exertion, orthopnea or sputum Gastrointestinal Gastrointestinal: Reports diarrhea and nausea; Denies abdominal pain or vomiting Genitourinary Genitourinary ED: Denies dysuria, hematuria or urinary frequency Musculoskeletal Musculoskeletal: Reports myalgias; Denies arthralgias, back pain or neck pain Integumentary Denies abscess, Abrasions or rash Neurologic Neurologic: Reports headache(s); Denies weakness Psychiatric Psychiatric: Denies anxiety, depression or suicidal thoughts Endocrine Endocrinology: Denies polydipsia, polyphagia or polyuria Hematologic/Lymphatic Hematologic/Lymphatic: Denies easy bleeding, easy bruising or lymphadenopathy Allergic/Immunologic Allergic/Immunologic ED: Denies mouth swelling, tongue swelling or urticaria EXAM Physical Exam Const Vital Signs: 10/20/24 17:09 10/20/24 19:54 Temperature 98.1 F Temperature Source Oral Pulse Rate 85 Respiratory Rate 16 Respiratory Effort Normal Non-Labored Respiratory Pattern Normal Blood Pressure 142/75 H Blood Pressure Mean 97 Pulse Ox 100 Oxygen Delivery Method Room Air Positive well nourished and well developed General Appearance ED: well developed and NAD HEENT Reports TM's clear and moist mucous membranes normocephalic and atraumatic; Negative for trauma or tenderness Tympanic Membrane ED: Yes TM's clear Eyes PERRL and EOMs intact bilaterally General Eye ED: Negative for pale conjunctiva or scleral icterus Neck no lymphadenopathy, supple and no JVD General: Negative for tenderness Chest Wall inspection of chest normal and palpation of chest normal Chest: Negative for tenderness Resp normal respiratory effort and clear to auscultation bilaterally Effort and Inspection: Negative for respiratory distress or pain with movement Auscultation: Negative for rhonchi, wheezes or diminished lung sounds Cardio regular rate, regular rhythm, S1 normal heart sound, S2 normal heart sound and no murmurs Peripheral Pulses: pulses 2+ throughout GI normal to inspection, nondistended, normoactive bowel sounds, soft to palpation, non-distended and no masses GI Narrative: Minimal discomfort in the epigastric region. There is no rebound, rigidity, or peritoneal signs. No mass palpated Back/Spine no CVA tenderness and no thoracic nor lumbar tenderness Extremity normal to inspection General Extremety ED: Negative for edema General Extremity: Negative for edema Neuro oriented x3, CN's II-XII intact bilaterally, no sensory deficits noted and gait normal Sensorium / Orientation: awake, alert, oriented to person, oriented to place and oriented to time Motor Exam: strength 5/5 throughout and strength abnormal Psych mental status grossly normal Skin no rashes or lesions noted and no wounds MDM MDM MDM Narrative Medical decision making narrative: Patient presents with nausea and headache and bodyaches. She has had exposure to influenza A. Clinically she looks well. Her abdominal exam is benign. COVID flu and RSV testing was negative. I did medicate her with Toradol as well as Zofran. Prior to my being able to go back and reevaluate the patient she told nursing staff she hates hospitals and does not want to be here any longer. Apparently somehow she had gotten her results of her COVID flu and RSV which may be through the portal. She knew she was negative. She left prior to my being able to reevaluate her and discuss further instructions with her. Clinically I suspect she may have a viral syndrome. Discharge Plan Triage Chief Complaint: Cold Sx ED Provider: Julissa Wilkes Dx/Rx/DC Orders Clinical Impression: Acute viral syndrome Prescriptions: No Action prednisone 20 MG tablet 40 mg PO DAILY Qty: 7 0RF Rx Instructions: With food albuterol sulfate 6.7 GM HFA aerosol inhaler 6.7 gm IH Q4H PRN PRN (Reason: Wheezing) Qty: 1 1RF Rx Instructions: ondansetron 4 MG tablet 4 mg PO Q8H PRN PRN (Reason: Nausea) Qty: 10 0RF Primary Care Provider: Care Physician,No Primary Referrals: Care Physician,No Primary [Primary Care Provider] - Print Language: Bulgarian Disposition Disposition: Elopement
[2024-10-20] MEDS: Ondansetron ODT 4 MG Tablet PO (19:50)
[2024-10-20] MEDS: Ketorolac 60 MG/2 ML Vial IM (19:50)
== END 2024-10-20 20:41 | disposition left against medical advice (07) ==
PROVIDERS: Emergency Provider Emergency Medicine; Visit Provider Emergency Medicine
DX: R11.0 Nausea (principal); R19.7 Diarrhea, unspecified; F17.210 Nicotine dependence, cigarettes, uncomplicated; B34.9 Viral infection, unspecified
CPT/HCPCS: 87631; 96372; 99282